=== PATIENT | female | born 1985 | race Caucasian/White ===

== ENCOUNTER 2021-01-05 16:41 | Emergency (ER) | payer BC ==
[~2021-01-05] VITALS: Ht 165.1 cm; Wt 81.2 kg
[2021-01-05] MEDS ORDERED: LISINOPRIL5 MG PO (18:28)
[2021-01-05] MEDS ORDERED: DESVENLAFAXINE50 M3 PO (18:29)
[2021-01-05] MEDS ORDERED: HYDROCHLOROTHIA25 MG PO (18:29)
[2021-01-05] MEDS ORDERED: OMEPRAZOLE20 MG PO (18:29)
[2021-01-05] MEDS ORDERED: GABAPENTIN300 MG PO (18:29)
[2021-01-05] MEDS ORDERED: CYPROHEPTADINE H4 MG PO (18:30)
--- NOTE | 2021-01-06 14:19 | EKG ---
[facility] [address] [facility] [address] [place], [place] [address] Signed Normal sinus rhythm Normal ECG No previous ECGs available Confirmed by BASIL JACQUES DO ([id number]) on 01/06/2021 2:19:19 PM Electronically Signed By: BASIL JACQUES DO 01/06/21 1419 PATIENT NAME: TEJADAELA RA Electrocardiogram DATE OF : 83 PHYSICIAN: BASIL JACQUES DO REPORT #: [id number] REPORT IS CONFIDENTIAL AND NOT TO BE RELEASED WITHOUT AUTHORIZATION
== END 2021-01-05 20:50 | disposition home or self-care (01) ==
LOC: ED 16:41
DX: M54.6 Pain in thoracic spine (principal); I10 Essential (primary) hypertension; Z79.899 Other long term (current) drug therapy
CPT/HCPCS: 71045; 80053; 83735; 84484; 85025; 85379; 93005; 93010; 99284-25